=== PATIENT | female | born 1975 | race Two or more races ===

== ENCOUNTER → 2021-05-11 11:35 | Outpatient (BNVA) | payer BC, SELFPAY | PROVIDERS: PCP Internal Medicine; Visit Provider Physician Assistant Surgical ==

== ENCOUNTER → 2021-06-02 08:18 | Outpatient (BNVA) | payer BC, SELFPAY | PROVIDERS: PCP Internal Medicine; Visit Provider Surgery ==

== ENCOUNTER → 2021-10-04 13:37 | Outpatient (REF) | payer BC, SELFPAY | LOC: HO.SL 13:37 | PROVIDERS: Visit Provider Surgery | DX: G47.33 Obstructive sleep apnea (adult) (pediatric) (principal); E66.9 Obesity, unspecified | CPT/HCPCS: 95806 ==

== ENCOUNTER → 2023-06-17 14:10 | Outpatient (BNVA) | payer BC, SELFPAY | PROVIDERS: PCP Nurse Practitioner Family; Visit Provider Physician Assistant ==

== ENCOUNTER 2023-06-26 08:10 | Outpatient (AMB) | payer BC, SELFPAY ==
--- NOTE | 2023-06-26 08:56 | MHC.OFFVISWM ---
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 penicillin V Allergy (Unknown, Verified 06/26/23 09:01) Anaphylaxis Sulfa (Sulfonamide Antibiotics) Allergy (Unknown, Verified 06/26/23 09:01) Anaphylaxis pt states no food allergies Allergy (Unknown, Uncoded 06/26/23 09:01) Anaphylaxis Medication List - Last Reconciled 06/26/23 by Hossein Tucker MD dorzolamide 2% 1 drp ophthalmic (eye) TID gabapentin 100 mg PO BEDTIME naproxen sodium (Aleve) 220 mg PO Q12H PRN simvastatin 5 mg PO DAILY HPI TV Re-Est SWL BMI 40.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* 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 Details Start time: 8.54am, End time: 9.54am ?I spent 50 minutes speaking with the patient on the phone plus an additional 10 minutes reviewing and updating records for a total of 60 minutes HPI Comments History of Present Illness Details [place] [facility] [place], Weight Watchers Wakes up: 7am, Sleeps: 1am Breakfast: 9am (Ham and cheese sandwich) Lunch: skips Dinner: 6pm (pasta, rice, meat) Snacks: 3-4 times between breakfast and dinner (cookies, banana, cake), one time after dinner Exercise: none, has a treadmill Fluids: Coffee (2 cups per day (sugar and almond milk), tea: 1/wk, soda: regular coke daily, juice: occasionally, ETOH: None PFSH Medical History (Updated 06/26/23 @ 09:06 by Hossein Tucker MD) Glaucoma Morbid obesity Steatosis, liver Hypersomnolence Knee pain Hyperlipidemia Hx of appendicitis Surgical History (Updated 06/01/21 @ 15:23 by Yazmin Goodwin CMA) Hx of appendectomy Hx of hysterectomy Family History (Updated 06/01/21 @ 15:20 by Yazmin Goodwin CMA) Mother High cholesterol Arthritis Father No problems noted. Sister No problems noted. Daughter No problems noted. Son No problems noted. Social History (Updated 06/01/21 @ 15:20 by Yazmin Goodwin [facility]) Alcohol intake: current Alcohol intake frequency: holidays/special occasions only Patient Tobacco Use Status: Never used Tobacco Assessment & Plan Assessment & Plan (1) Morbid obesity: Code(s): E66.01 - Morbid (severe) obesity due to excess calories Plan: 1.? Plan for lap sleeve gastrectomy. If diaphragmatic or ventral hernias are present at time of surgery, these will be repaired laparoscopically as well. 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 I emphasized the importance of close follow-up, adherence to instructions and good communication. 2. Nutritional counseling. Start with 2 CELEBRATE REBUILD protein (buy at hospital's [employer] [facility]) shakes (ONE scoop EACH in 8oz low fat unsweetened almond milk each) at 8am-10am and 11am-1pm, 1 protein bar (CELEBRATE protein bars, buy at [facility] [employer] [facility]) at 2pm-4pm, dinner at 5pm (8 forks of protein and 8 forks of salad/vegetables), one more protein bar after dinner at 7pm-9pm and one more CELEBRATE REBUILD protein shake (ONE scoop in 8oz almond milk). So you do 3 protein shakes, 2 protein bars and one meal per day. Meal to include lean meat (beef, fish, pork, turkey, chicken), or south african yogurt, or egg whites, or beans with a salad with olive oil and fruits (berries, pears, apples, kiwi). Avoid salt, breads, potatoes, rice, pasta, desserts. 3. Each shake would be drunk slowly, like coffee in a period of 2 hours. May add your coffee into your shakes, if flavors match. 4. Cut each bar in 4 pieces and eat each piece in 30min ?to make each bar last 2 hours. 5. I emphasized the importance of measuring accurately the food portion and measure it when serving the food in plate 6. The meal portions include 8 full-size forks of meat and 8 full-size forks of salad. You always eat the meat portion but you can replace up to 4 forks for salad/vegetables with rice, potatoes or pasta, or a fruit ?if you like. The less you do it the better weight loss will be. 7. One full-size fork is what it can be scooped on the fork without falling aside and not what can be bit with the fork. Use regular forks like those you find in a typical restaurant. 8.? Please send me weight measurements as soon as possible and then once a week. Always include your diet and exercise plan. 9. Start treadmill with an incline of 2.0 and speed of 3.0. Increase incline by 1 every 3 min to a max incline of 8.0, stay 3min at 8.0 and then return to 2.0 and repeat same steps until calorie goal is met. Goal is to burn 2000 calories per week on exercise, which means either 300 calories daily, or 400 calories 5 days per week, or 500 calories 4 days per week, or 650 calories 3 days per week. Start also weight exercises with 20-30lbs for chest/shoulders/abdomen and 40-50lbs for thighs doing 2 sets of 15 repetitions each. 10. Goal is to lose at least 1.5-2lbs per week 11. Goal to lose 10% of your weight before surgery, which is about 24lbs. Ultimate weight goal: 214lbs before surgery 12. Please follow the diet plan exactly without any change. If you don't like something about the plan or you feel hungry you need to communicate with me so I can help you revise the plan. You should not change the plan yourself. Orders: Orders Insulin Today E66.01 - Morbid (severe) obesity due to excess calories, E78.5 - Hyperlipidemia, unspecified, K76.0 - Fatty (change of) liver, not elsewhere classified Hemoglobin A1c Today E66.01 - Morbid (severe) obesity due to excess calories, E78.5 - Hyperlipidemia, unspecified, K76.0 - Fatty (change of) liver, not elsewhere classified H Pylori Breath Test Today E66.01 - Morbid (severe) obesity due to excess calories, E78.5 - Hyperlipidemia, unspecified, K76.0 - Fatty (change of) liver, not elsewhere classified Lipid Panel Today E66.01 - Morbid (severe) obesity due to excess calories, E78.5 - Hyperlipidemia, unspecified, K76.0 - Fatty (change of) liver, not elsewhere classified IRON PROFILE Today E66.01 - Morbid (severe) obesity due to excess calories, E78.5 - Hyperlipidemia, unspecified, K76.0 - Fatty (change of) liver, not elsewhere classified Zinc Today E66.01 - Morbid (severe) obesity due to excess calories, E78.5 - Hyperlipidemia, unspecified, K76.0 - Fatty (change of) liver, not elsewhere classified Vitamin B1 Today E66.01 - Morbid (severe) obesity due to excess calories, E78.5 - Hyperlipidemia, unspecified, K76.0 - Fatty (change of) liver, not elsewhere classified Vitamin D 25-OH Total Today E66.01 - Morbid (severe) obesity due to excess calories, E78.5 - Hyperlipidemia, unspecified, K76.0 - Fatty (change of) liver, not elsewhere classified ECG 12 lead EKG Today E66.01 - Morbid (severe) obesity due to excess calories, E78.5 - Hyperlipidemia, unspecified, K76.0 - Fatty (change of) liver, not elsewhere classified FL upper GI w air Today E66.01 - Morbid (severe) obesity due to excess calories, E78.5 - Hyperlipidemia, unspecified, K76.0 - Fatty (change of) liver, not elsewhere classified Complete Blood Count Auto Diff Today E66.01 - Morbid (severe) obesity due to excess calories, E78.5 - Hyperlipidemia, unspecified, K76.0 - Fatty (change of) liver, not elsewhere classified Comprehensive Met. Panel Today E66.01 - Morbid (severe) obesity due to excess calories, E78.5 - Hyperlipidemia, unspecified, K76.0 - Fatty (change of) liver, not elsewhere classified Vitamin B12 and Folate Today E66.01 - Morbid (severe) obesity due to excess calories, E78.5 - Hyperlipidemia, unspecified, K76.0 - Fatty (change of) liver, not elsewhere classified C Reactive Protein Today E66.01 - Morbid (severe) obesity due to excess calories, E78.5 - Hyperlipidemia, unspecified, K76.0 - Fatty (change of) liver, not elsewhere classified Vitamin A Today E66.01 - Morbid (severe) obesity due to excess calories, E78.5 - Hyperlipidemia, unspecified, K76.0 - Fatty (change of) liver, not elsewhere classified TSH reflex Free T4 Today E66.01 - Morbid (severe) obesity due to excess calories, E78.5 - Hyperlipidemia, unspecified, K76.0 - Fatty (change of) liver, not elsewhere classified Ferritin Today E66.01 - Morbid (severe) obesity due to excess calories, E78.5 - Hyperlipidemia, unspecified, K76.0 - Fatty (change of) liver, not elsewhere classified US abdomen comp w elastography Today E66.01 - Morbid (severe) obesity due to excess calories, E78.5 - Hyperlipidemia, unspecified, K76.0 - Fatty (change of) liver, not elsewhere classified XR chest 2V Today E66.01 - Morbid (severe) obesity due to excess calories, E78.5 - Hyperlipidemia, unspecified, K76.0 - Fatty (change of) liver, not elsewhere classified Referrals Behavioral Health Referral E66.01 - Morbid (severe) obesity due to excess calories, E78.5 - Hyperlipidemia, unspecified, K76.0 - Fatty (change of) liver, not elsewhere classified Nutrition/Dietitian Referral E66.01 - Morbid (severe) obesity due to excess calories, E78.5 - Hyperlipidemia, unspecified, K76.0 - Fatty (change of) liver, not elsewhere classified Telehealth Telehealth Location of provider rendering services: practice address Location of patient: address on file Patient Identification confirmed using: Name, : Yes Telehealth method: voice only Patient verbally consented to treatment: Yes Patient verbally consented to billing insurance company: Yes Patient informed of any privacy concerns related to visit: Yes Minutes spent on Phone/Video with Pt.: 60 Coding Level of Care Code Tele [facility] Pt Level 5 (87894) Diagnoses Morbid obesity E66.01 Time Spent (min) 60 Comment 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
[2023-06-26 09:18] VITALS: BMI 40.3
== END 2023-06-26 09:54 | disposition home or self-care (01) ==
LOC: HO.HBS 08:10
PROVIDERS: Visit Provider Surgery
DX: E66.01 Morbid (severe) obesity due to excess calories (principal); Z68.41 Body mass index [BMI] 40.0-44.9, adult
CPT/HCPCS: 99443

== ENCOUNTER → 2023-06-26 08:10 | Outpatient (BNVA) | payer BC, SELFPAY | PROVIDERS: Visit Provider Surgery ==

== ENCOUNTER 2023-06-27 10:46 | Outpatient (REF) | payer BC, SELFPAY ==
--- NOTE | ~2023-06-27 | XR_ITS ---
EXAMINATION: XR CHEST 2 VIEWS CLINICAL INFORMATION: Orbit obesity. COMPARISON: None. TECHNIQUE: Frontal and lateral views of the chest were obtained. FINDINGS: The heart, great vessels, pulmonary vasculature and mediastinum are normal. The lungs show no focal infiltrate, effusion or pneumothorax. There is no acute osseous abnormality. XR/XR chest 2V IMPRESSION: No active cardiopulmonary disease.
--- NOTE | 2023-06-27 10:53 | ECG_ITS ---
Test Reason : OBESITY Blood Pressure : / mmHG Vent. Rate : 081 BPM Atrial Rate : 081 BPM P-R Int : 132 ms QRS Dur : 072 ms QT Int : 344 ms P-R-T Axes : 062 020 010 degrees QTc Int : 399 ms Normal sinus rhythm Normal ECG No previous ECGs available Referred By: Hossein Tucker Electronically Signed By:REINALDO REYES
[2023-06-27 11:02] LABS: MANUAL DIFF FLAG NO
[2023-06-27 11:59] LABS: Basophils Percent Auto 0.8 % (0-2); Eosinophils Absolute Auto 0.2 X10*3/uL (0.0-0.4); Eosinophils Percent Auto 4.4 % (0-4); Hematocrit 39.4 % (37.0-47.0); Imm Gran Abs Auto 0.02 X10*3/uL (0.00-0.03); Imm Gran Pct Auto 0.4 % (0.0-0.4); Lymphocytes Absolute Auto 1.3 X10*3/uL (1.2-4.9); Lymphocytes Percent Auto 26.4 % (20-40); Mean Corpuscular Hemoglobin 28.7 pg (27.0-33.0); Mean Platelet Volume 10.2 fL (9.4-12.3); Monocytes Absolute Auto 0.8 X10*3/uL (0.1-1.2); Monocytes Percent Auto 16.1 % (2-11); Neutrophils Absolute Auto 2.6 x10*3/uL (2.0-8.3); Neutrophils Percent Auto 51.9 % (45-73); Platelet Count 188 X10*3/uL (160-400); Red Blood Count 4.53 X10*6/uL (4.20-5.50)
[2023-06-27 12:09] LABS: Estimated Average Glucose 108 mg/dL; Hemoglobin A1c % 5.4 % (<6.0)
[2023-06-27 12:46] LABS: Alanine Aminotransferase 31 U/L (0-31); Albumin Level 4.3 g/dL (3.5-5.0); Alkaline Phosphatase 69 U/L (39-117); Anion Gap 12 (12-20); Aspartate Amino Transferase 19 U/L (5-31); Bilirubin Total 0.3 mg/dL (0.0-1.0); Blood Urea Nitrogen 13 mg/dL (9-16); C Reactive Protein 1.66 mg/dL (< or = 0.50); Calcium 9.5 mg/dL (8.4-10.2); Carbon Dioxide 24 mmol/L (22-29); Chloride 111 mmol/L (96-108); Cholesterol 214 mg/dL (<200); Estimated Glomerular Filt Rate > 60; Glucose Random 97 mg/dL (60-115); HDL Cholesterol 39 mg/dL (>40); Iron 53 mcg/dL (30-160); LDL Cholesterol Calculated 138 mg/dL (<100); Percent Iron Saturation 16 % (15-50); Potassium 4.8 mmol/L (3.3-5.1); Sodium 142 mmol/L (135-145); Total Iron Binding Capacity 322 mcg/dL (228-428); Total Protein 7.6 g/dL (6.5-8.0); Triglycerides 185 mg/dL (<150); Unsaturated Iron Binding 269 ug/dL
[2023-06-27 12:54] LABS: Ferritin 120 ng/mL (10-250); Insulin 33 uU/mL (2-29); TSH reflex Free T4 1.24 uIU/mL (0.32-4.0); Vitamin D 25-OH Total 29.2 ng/mL (>30)
[2023-06-27 12:56] LABS: Folate 6.9 ng/mL (> or = 4.0); Vitamin B12 705 pg/mL (200-900)
[2023-06-30 15:54] LABS: Zinc 74 mcg/dL (60-130)
[2023-07-02 02:49] LABS: Vitamin A 45 mcg/dL (38-98)
[2023-07-05 16:53] LABS: Vitamin B1 9 nmol/L (8-30)
== END 2023-06-27 10:47 | disposition home or self-care (01) ==
LOC: HO.LAB 10:46
PROVIDERS: Visit Provider Surgery
DX: E66.01 Morbid (severe) obesity due to excess calories (principal); E78.5 Hyperlipidemia, unspecified; K76.0 Fatty (change of) liver, not elsewhere classified
CPT/HCPCS: 36415; 71046; 80053; 80061; 82306; 82607; 82728; 82746; 83036; 83525; 83540; 84425; 84443; 84590; 84630; 85025; 86140; 93005

== ENCOUNTER → 2023-06-27 10:53 | Outpatient (BNV) | payer BC, SELFPAY | PROVIDERS: Visit Provider Internal Medicine | DX: E66.01 Morbid (severe) obesity due to excess calories (principal); Z68.41 Body mass index [BMI] 40.0-44.9, adult | CPT/HCPCS: 93010 ==

== ENCOUNTER 2023-07-15 08:13 | Outpatient (AMB) | payer BC, SELFPAY ==
--- NOTE | 2023-07-15 13:33 | MHC.OFFVISWM ---
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* HPI Details Start time: 1.30pm, End time: 1.55pm ?I spent 20 minutes speaking with the patient on the phone plus an additional 5 minutes reviewing and updating records for a total of 25 minutes HPI Comments History of Present Illness Details Overall weight loss: 4lbs or 1.68% TBWL Is doing 1.5 Celebrate Rebuild protein shakes, 1-2 Celebrate bars and one meal (8 forks of protein and 8 forks of salad or vegetables) Exercise: is doing treadmill for 4 days per week for 300 calories PFSH Medical History (Updated 07/15/23 @ 13:53 by Hossein Tucker MD) Glaucoma Morbid obesity Steatosis, liver Hypersomnolence Knee pain Hyperlipidemia Hx of appendicitis Surgical History (Updated 06/01/21 @ 15:23 by Yazmin Goodwin CMA) Hx of appendectomy Hx of hysterectomy Family History (Updated 06/01/21 @ 15:20 by Yazmin Goodwin CMA) Mother High cholesterol Arthritis Father No problems noted. Sister No problems noted. Daughter No problems noted. Son No problems noted. Social History (Updated 06/01/21 @ 15:20 by Yazmin Goodwin CMA) Alcohol intake: current Alcohol intake frequency: holidays/special occasions only Patient Tobacco Use Status: Never used Tobacco Assessment & Plan Assessment & Plan (1) Obesity: Code(s): E66.9 - Obesity, unspecified Qualifiers: Obesity type: due to excess calories Obesity classification: adult class 2 (BMI 35 - 39.9) Serious obesity comorbidity presence: with serious comorbidity Body mass index: BMI 39.0-39.9 Qualified Code(s): E66.01 - Morbid (severe) obesity due to excess calories; Z68.39 - Body mass index [BMI] 39.0-39.9, adult Plan: 1. Please do all shakes and bars of the plan: 2 Celebrate Rebuild protein shakes (1 scoop each in 8oz almond milk), 2 Celebrate bars and one meal (8 forks of protein and 8 forks of salad or vegetables) 2. Measure the food portions correctly and keep them at 8 forks each 3. Exercise: increase treadmill to 5 days per week for 300 calories per work-out. Goal is to burn 2000 calories per week 4. Continue to send me weight measurements weekly on Saturdays Telehealth Telehealth Location of provider rendering services: practice address Location of patient: address on file Patient Identification confirmed using: Name, : Yes Telehealth method: voice only Patient verbally consented to treatment: Yes Patient verbally consented to billing insurance company: Yes Patient informed of any privacy concerns related to visit: Yes Minutes spent on Phone/Video with Pt.: 25 Coding Level of Care Code Tele Est Pt Level 3 (06258) Diagnoses Class 2 severe obesity due to excess calories with serious comorbidity and body mass index (BMI) of 39.0 to 39.9 in adult E66.01; Z68.39 Obesity type: due to excess calories Obesity classification: adult class 2 (BMI 35 - 39.9) Serious obesity comorbidity presence: with serious comorbidity Body mass index: BMI 39.0-39.9 Time Spent (min) 25 Comment With a Setswana speaking case management social worker
[2023-07-15 13:34] VITALS: BMI 39.6
== END 2023-07-15 13:56 | disposition home or self-care (01) ==
LOC: HO.HBS 08:14
PROVIDERS: Visit Provider Surgery
DX: E66.09 Other obesity due to excess calories (principal); Z68.39 Body mass index [BMI] 39.0-39.9, adult
CPT/HCPCS: 99213; 99443

== ENCOUNTER → 2023-07-15 08:13 | Outpatient (BNVA) | payer BC, SELFPAY | PROVIDERS: Visit Provider Surgery ==

== ENCOUNTER 2023-07-19 13:52 | Outpatient (AMB) | payer BC, SELFPAY ==
--- NOTE | 2023-07-19 13:24 | MHC.AMNUTRGE ---
Intake Intake Visit Reasons: TV Initial Nutrition [facility] Seismograph Helper Required: Yes Seismograph Helper Name: [id number] Information Interpreted: non-clinical & clinical Allergies penicillin V Allergy (Unknown, Verified 06/26/23 09:01) Anaphylaxis Sulfa (Sulfonamide Antibiotics) Allergy (Unknown, Verified 06/26/23 09:01) Anaphylaxis pt states no food allergies Allergy (Unknown, Uncoded 06/26/23 09:01) Anaphylaxis HPI Nutrition Presentation Reason for consult elevated BMI Diet Assmnt Details pt reports she has been following Dr. Tucker nutrition plan, has no questions or concerns today. She is very happy with the shakes and bars. for dinnr meals she has vegetable and steak, chicken, or shrimp. [facility] online classes : completed. Some of them she did not score well on but she thinks her quiz malfunctioned and she demonstrates an understanding of the information today. Dietary counseling reduction Meal frequency regular: breakfast, dinner (rice, beans, meat ) and snacks (candy) and never: lunch Lifestyle Eating out 1-3 times/week Food frequency Dairy: several times weekly, Fruit: several times weekly, Vegetables: several times weekly, Grains/pasta/breads/cereal (carbs): daily, Meats/poultry/fish (protein): daily (dislikes fish ) and Meat substitutes/nuts/seeds/legumes: daily Diagnosis Nutrition problem #1 overweight/obesity As related to (etiology) #1 excess energy intake and physical inactivity As evidenced by (sign/symptom) #1 high BMI Monitoring/Goals Nutrition problem monitoring total energy intake, level of knowledge/skill, total PRO intake, weight and oral fluids Outcome progress progressing Learning/Education Readiness to learn good Stages of change action Most Recent Diabetes Results: Cholesterol 214 mg/dL (<200) H 06/27/23 HDL Cholesterol 39 mg/dL (>40) L 06/27/23 Triglycerides 185 mg/dL (<150) H 06/27/23 Creatinine 0.86 mg/dL (0.5-1.4) 06/27/23 Blood Urea Nitrogen 13 mg/dL (9-16) 06/27/23 Sodium 142 mmol/L (135-145) 06/27/23 Potassium 4.8 mmol/L (3.3-5.1) 06/27/23 Chloride 111 mmol/L (96-108) H 06/27/23 Carbon Dioxide 24 mmol/L (22-29) 06/27/23 Calcium 9.5 mg/dL (8.4-10.2) 06/27/23 AST 19 U/L (5-31) 06/27/23 ALT 31 U/L (0-31) 06/27/23 Total Protein 7.6 g/dL (6.5-8.0) 06/27/23 Albumin 4.3 g/dL (3.5-5.0) 06/27/23 [facility] Medical History (Updated 07/15/23 @ 13:53 by Hossein Tcuker MD) Glaucoma Morbid obesity Steatosis, liver Hypersomnolence Knee pain Hyperlipidemia Hx of appendicitis Surgical History (Updated 06/01/21 @ 15:23 by Yazmin Goodwin CMA) Hx of appendectomy Hx of hysterectomy Family History (Updated 06/01/21 @ 15:20 by Yazmin Goodwin CMA) Mother High cholesterol Arthritis Father No problems noted. Sister No problems noted. Daughter No problems noted. Son No problems noted. Social History (Updated 06/01/21 @ 15:20 by Yazmin Goodwin CMA) Alcohol intake: current Alcohol intake frequency: holidays/special occasions only Patient Tobacco Use Status: Never used Tobacco Assessment & Plan Assessment & Plan (1) Obesity (BMI 30-39.9): Code(s): E66.9 - Obesity, unspecified Plan pt is cleared from a nutrition standpoint for bariatric surgery., reviewed classes and pt demonstrates understanding Telehealth Telehealth Location of provider rendering services: other Location of patient: address on file Patient Identification confirmed using: Name, : Yes Telehealth method: voice only Patient verbally consented to treatment: Yes Patient verbally consented to billing insurance company: Yes Patient informed of any privacy concerns related to visit: Yes Minutes spent on Phone/Video with Pt.: 30 Coding Level of Care Code Nutr Indiv Intake (70491) Diagnoses Obesity (BMI 30-39.9) E66.9 Time Spent (min) 30
== END 2023-07-19 13:56 | disposition home or self-care (01) ==
LOC: HO.HBS 13:52
PROVIDERS: Visit Provider Dietitian, Registered
DX: E66.9 Obesity, unspecified (principal)

== ENCOUNTER → 2023-07-19 13:52 | Outpatient (BNVA) | payer BC, SELFPAY | PROVIDERS: Visit Provider Dietitian, Registered | DX: E66.9 Obesity, unspecified (principal); Z71.3 Dietary counseling and surveillance | CPT/HCPCS: 97802 ==

== ENCOUNTER 2023-07-30 08:17 | Outpatient (REF) | payer BC, SELFPAY | END 2023-07-30 08:18 | disposition home or self-care (01) | LOC: HO.US 08:17 | PROVIDERS: Visit Provider Surgery | DX: Z11.2 Encounter for screening for other bacterial diseases (principal); E66.01 Morbid (severe) obesity due to excess calories | CPT/HCPCS: 99211 ==

== ENCOUNTER 2023-07-30 13:51 | Outpatient (REF) | payer BC, SELFPAY ==
[2023-08-04 14:28] LABS: H Pylori Breath Test Negative (Negative)
== END 2023-07-30 13:52 | disposition home or self-care (01) ==
LOC: HO.LNP 13:51
PROVIDERS: Visit Provider Surgery
DX: E66.01 Morbid (severe) obesity due to excess calories (principal); K76.0 Fatty (change of) liver, not elsewhere classified; E78.5 Hyperlipidemia, unspecified
CPT/HCPCS: 83013

== ENCOUNTER 2023-07-31 10:05 | Outpatient (AMB) | payer BC, SELFPAY ==
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
== END 2023-08-07 14:55 | disposition home or self-care (01) ==
LOC: HO.HBST 10:05
PROVIDERS: Visit Provider Counselor Mental Health
DX: F43.20 Adjustment disorder, unspecified (principal)
CPT/HCPCS: 90791

== ENCOUNTER → 2023-07-31 10:05 | Outpatient (BNVA) | payer BC, SELFPAY | PROVIDERS: Visit Provider Counselor Mental Health ==

== ENCOUNTER 2023-08-05 08:00 | Outpatient (AMB) | payer BC, SELFPAY ==
--- NOTE | 2023-08-05 10:40 | MHC.OFFVISWM ---
Intake VS Expanded 08/05/23 10:48 Height 5 ft 4.5 in Weight 235 lb 8 oz BMI 39.8 Body Fat % 51.2 Body Fat Mass 120.7 Fat Free Mass 115.1 Visceral Fat Rating 15.7 Body Water % 38.1 Body Water Mass 89.8 Basal Metabolic Rate/Score 1,718 Intake Visit Reasons: TV Follow Up SWL *[facility]ER [facility]TER* Allergies penicillin V Allergy (Unknown, Verified 07/30/23 08:37) Anaphylaxis Sulfa (Sulfonamide Antibiotics) Allergy (Unknown, Verified 07/30/23 08:37) Anaphylaxis pt states no food allergies Allergy (Unknown, Uncoded 06/26/23 09:01) Anaphylaxis HPI TV Follow Up SWL *SANDER [employer]TER* HPI Details Start time: 10.37am, End time: 10.57am ?I spent 15 minutes speaking with the patient on the phone plus an additional 5 minutes reviewing and updating records for a total of 20 minutes HPI Comments History of Present Illness Details Overall weight loss: 2.8lbs, or 1.17% TBWL Is doing 2 Celebrate Rebuild protein shakes (1 scoop each in 8oz almond milk), 2 Celebrate protein bars and one meal (8 forks of protein and 8 forks of salad or vegetables) Exercise: is doing treadmill daily for 300 calories per work-out [facility] Medical History (Updated 07/15/23 @ 13:53 by Hossein Tucker MD) Glaucoma Morbid obesity Steatosis, liver Hypersomnolence Knee pain Hyperlipidemia Hx of appendicitis Surgical History (Updated 06/01/21 @ 15:23 by Yazmin Goodwin CMA) Hx of appendectomy Hx of hysterectomy Family History (Updated 06/01/21 @ 15:20 by Yazmin Goodwin CMA) Mother High cholesterol Arthritis Father No problems noted. Sister No problems noted. Daughter No problems noted. Son No problems noted. Social History (Updated 06/01/21 @ 15:20 by Yazmin Goodwin CMA) Alcohol intake: current Alcohol intake frequency: holidays/special occasions only Patient Tobacco Use Status: Never used Tobacco Physical Exam Vital Signs: BMI result Body Mass Index 39.8 Assessment & Plan Assessment & Plan (1) Obesity: Code(s): E66.9 - Obesity, unspecified Qualifiers: Body mass index: BMI 39.0-39.9 Obesity classification: adult class 2 (BMI 35 - 39.9) Obesity type: due to excess calories Serious obesity comorbidity presence: with serious comorbidity Qualified Code(s): E66.01 - Morbid (severe) obesity due to excess calories; Z68.39 - Body mass index [BMI] 39.0-39.9, adult Plan: 1. Continue same nutritional plan of 2 Celebrate Rebuild protein shakes (1 scoop each in 8oz almond milk), 2 Celebrate protein bars and one meal (8 forks of protein and 8 forks of salad or vegetables) 2. Exercise: continue treadmill daily for 300 calories per work-out. Goal is to burn 2000 calories per week on treadmill 4. Continue to send me weight measurements weekly on Saturdays Telehealth Telehealth Location of provider rendering services: practice address Location of patient: address on file Patient Identification confirmed using: Name, : Yes Telehealth method: voice only Patient verbally consented to treatment: Yes Patient verbally consented to billing insurance company: Yes Patient informed of any privacy concerns related to visit: Yes Minutes spent on Phone/Video with Pt.: 20 Coding Level of Care Code Tele Est Pt Level 3 (36451) Diagnoses Class 2 severe obesity due to excess calories with serious comorbidity and body mass index (BMI) of 39.0 to 39.9 in adult E66.01; Z68.39 Body mass index: BMI 39.0-39.9 Obesity classification: adult class 2 (BMI 35 - 39.9) Obesity type: due to excess calories Serious obesity comorbidity presence: with serious comorbidity Time Spent (min) 20 Comment With a Citizen Of [place] speaking supervisor assembly
[2023-08-05 10:48] VITALS: BMI 39.8
== END 2023-08-05 10:59 | disposition home or self-care (01) ==
LOC: HO.HBS 08:00
PROVIDERS: Visit Provider Surgery
DX: E66.01 Morbid (severe) obesity due to excess calories (principal); Z68.39 Body mass index [BMI] 39.0-39.9, adult
CPT/HCPCS: 99213; 99442

== ENCOUNTER → 2023-08-05 08:00 | Outpatient (BNVA) | payer BC, SELFPAY | PROVIDERS: Visit Provider Surgery ==

== ENCOUNTER 2023-08-12 10:02 | Outpatient (REF) | payer BC, SELFPAY ==
--- NOTE | ~2023-08-12 | US_ITS ---
EXAMINATION: US COMPLETE ABDOMEN WITH LIVER ELASTOGRAPHY CLINICAL INFORMATION: Morbid (severe) obesity COMPARISON: None available. TECHNIQUE: Real-time imaging of the abdominal viscera. Noninvasive ultrasound liver fibrosis assessment is performed using Sherry ElastPQ point quantification shear wave elastography (2D-SWE) with a C5-2 MHz transducer. Multiple elastography samples are obtained. FINDINGS: PANCREAS: The visualized pancreatic head and body are normal in appearance. The remainder of the pancreas is obscured from visualization by the overlying bowel gas. ABDOMINAL AORTA: The proximal, middle, and distal aortic segments are normal in caliber. INFERIOR VENA CAVA: Visualized portions are normal. LIVER: The liver demonstrates normal size and contour with mildly increased echogenicity. No focal lesion or intrahepatic biliary duct dilatation. The right lobe measures 15 cm in length. The left lobe measures 10.4 cm in length. Portal flow is towards the liver (hepatopetal). Shear wave liver elastography median stiffness is 1.5 m/s (reference: normal median stiffness is 1.3 m/s or less). IQR/median stiffness to assess sampling precision is 0.04 (reference: good quality data set is IQR/median stiffness of 0.15 or less). GALLBLADDER: The gallbladder is physiologically distended without evidence of stones, sludge, polyps, wall thickening or pericholecystic fluid. COMMON BILE DUCT: Normal in caliber measuring 0.3 cm in diameter. RIGHT KIDNEY: No hydronephrosis. No renal calculi or focal parenchymal lesions. The kidney measures 11.5 cm in maximum dimension. LEFT KIDNEY: No hydronephrosis. No renal calculi or focal parenchymal lesions. The kidney measures 10.7 cm in maximum dimension. SPLEEN: The spleen measures 10 cm in maximum dimension. FREE FLUID: None. US/US abdomen comp w elastography IMPRESSION: 1. Diffuse mildly increased liver echogenicity suggestive of infiltrative hepatocellular disease such as steatosis. 2. Liver elastography: In the absence of other known clinical signs, measurements rule out compensated advanced chronic liver disease. If there are known clinical signs, further testing may be needed for confirmation. REFERENCE: Society of Radiologists in Ultrasound Liver Stiffness Thresholds (2020): LIVER STIFFNESS THRESHOLDS: *Liver Stiffness equal or less than 1.3 m/s: High probability of being normal. *Liver Stiffness less than 1.7 m/s: In the absence of other known clinical signs, rules out compensated advanced chronic liver disease. *Liver Stiffness 1.7-2.1 m/s: Suggestive of compensated advanced chronic liver disease but need further test for confirmation. *Liver Stiffness over 2.1 m/s: Rules in compensated advanced chronic liver disease. *Liver Stiffness over 2.4 m/s: Suggestive of clinically significant portal hypertension. QUALITY OF DATA SET: *IQR/Median value equal or less than 0.15 implies a quality data set. *IQR/Median value over 0.15 implies a poor quality data set. SIGNIFICANT CHANGE FROM PRIOR EXAM: Significant change if liver stiffness measurement is 10% or greater from prior exam. OTHER CONSIDERATIONS: The stage of liver fibrosis may be overestimated in the setting of acute hepatitis, liver inflammation, elevated liver function tests, hepatic vascular congestion, obstructive cholestasis, non-fasting state, and infiltrative diseases such as amyloidosis and lymphoma. In some patients with NAFLD, the liver stiffness thresholds for compensated advanced chronic liver disease may be lower. In causes other than viral hepatitis and NAFLD, liver stiffness thresholds are not well established.
== END 2023-08-12 10:03 | disposition home or self-care (01) ==
LOC: HO.US 10:02
PROVIDERS: Visit Provider Surgery
DX: E66.01 Morbid (severe) obesity due to excess calories (principal); K76.0 Fatty (change of) liver, not elsewhere classified; E78.5 Hyperlipidemia, unspecified
CPT/HCPCS: 76700; 76981

== ENCOUNTER 2023-08-28 10:00 | Outpatient (AMB) | payer BC, SELFPAY ==
--- NOTE | 2023-08-28 10:13 | MHC.WMTHER ---
Intake Intake Visit Reasons: VIDEO BH F/U Allergies penicillin V Allergy (Unknown, Verified 07/30/23 08:37) Anaphylaxis Sulfa (Sulfonamide Antibiotics) Allergy (Unknown, Verified 07/30/23 08:37) Anaphylaxis pt states no food allergies Allergy (Unknown, Uncoded 06/26/23 09:01) Anaphylaxis [facility] Medical History (Updated 07/15/23 @ 13:53 by Hossein Tucker MD) Glaucoma Morbid obesity Steatosis, liver Hypersomnolence Knee pain Hyperlipidemia Hx of appendicitis Surgical History (Updated 06/01/21 @ 15:23 by Yazmin Goodwin CMA) Hx of appendectomy Hx of hysterectomy Family History (Updated 06/01/21 @ 15:20 by Yazmin Goodwin CMA) Mother High cholesterol Arthritis Father No problems noted. Sister No problems noted. Daughter No problems noted. Son No problems noted. Social History (Updated 06/01/21 @ 15:20 by Yazmin Goodwin CMA) Alcohol intake: current Alcohol intake frequency: holidays/special occasions only Patient Tobacco Use Status: Never used Tobacco Behavioral Health Assessment Weight Management Therapy Therapy Notes Details PT presents for a follow up. 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 PT reports she has been doing great with the meal plan, but is having a hard time to start exercising but she does uses her treadmill daily. We administered again the BEs and scores decreased from 27 when started program to 3 today. Reflecting positive behavioral changes in eating habits and mindset. Mental status exam is within normal limits showing patient's functioning is excellent. PT is cleared and she is considered a great candidate for the SWL program. Presenting Concerns Referral Source PT sees Dr. Aviles. She was referred to the program by a friend who has bariatric surgery. Reason for referral Completion of behavioral health assessment as part of process for weight-loss surgery. Precipitating Event Obesity. She has tried multiple methods with no result. Binge Eating Do you frequently eat large amounts of food in short periods of time, not feeling physically hungry? No Do you feel out of control when you eat a large amount of food in a short period of time? No Do you eat large amounts of food rapidly and typically alone? No Night Eating Do you wake up at least once during the night to eat? No If you wake up in the night, do you find that it is necessary to eat something in order to fall back asleep? No Do you have little or no appetite in the morning and feel very hungry in the evening, often overeating between dinner and when you go to bed? No Questionnaires Binge Eating Scale Group 1 A. I don't feel self-conscious about my wt. or body size when I'm with others. B. I feel concerned about how I look to others, but it normally does not make me fell disappointed with myself C. I do get self-conscious about my appearance and wt. which makes me feel disappointed in myself. D. I feel very self-conscious about my wt. and frequently I feel intense shame and disgust for myself. I try to avoid social contacts because of my self-consciousness. Response Group 1: B Group 2 A. I don't have any difficulty eating slowly in the proper manner. B. Although I seem to gobble down foods, I don't end up feeling stuffed because of eating to much. C. At times, I tend to eat quickly and then, I feel uncomfortably full afterwards. D. I have the habit of bolting down my food, without really chewing it. When this happens I usually feel uncomfortably stuffed because I've eaten to much. Response Group 2: A Group 3 A. I feel capable to control my eating urges when I want to. B. I feel like I have failed to control my eating more than the average person. C. I feel utterly helpless when it comes to feeling in control of my eating urges. D. Because I feel so helpless about controlling my eating I have become very desperate about trying to get control. Response Group 3: A Group 4 A. I don't have the habit of eating when I'm bored. B. I sometimes eat when I'm bored, but often I'm able to get busy and get my mind off food. C. I have a regular habit of eating when I'm bored, but occasionally, I can use some other activity to get my mind off eating. D. I have a strong habit of eating when I'm bored. Nothing seems to help me breath the habit. Response Group 4: A Group 5 A. I'm usually physically hungry when I eat something. B. Occasionally, I eat something on impulse even though I really am not hungry. C. I have the regular habit of eating foods, that I might not really enjoy, to satisfy a hungry feeling even though physically, I don't need the food. D. Although I'm not physically hungry, I get a hungry feeling in my mouth that only seems to be satisfied when I eat a food, like sandwich, that fills my mouth. Sometimes, when I eat the food to satisfy my mouth hunger, I then spit the food out so I won't gain weight. Response Group 5: A Group 6 A. I don't feel any guilt or self-hate after I overeat. B. After I overeat, occasionally I feel guilt or self-hate. C. Almost all the time I experience strong guilt or self-hate after I overeat. Response Group 6: A Group 7 A. I don't lose total control of my eating when dieting even after periods when I overeat. B. Sometimes when I eat a forbidden food on a diet, I feel like I blew it and eat even more. C. Frequently, I have the habit of saying to myself, I've blown it now, why not go all the way, when I overeat on a diet. When that happens I eat more. D. I have a regular habit of starting a strict diets for myself but I break the diets by going on an eating binge. My life seems to be either a feast or famine. Response Group 7: A Group 8 A. I rarely eat so much food that I feel uncomfortably stuffed afterwards. B. Usually about once a month, I each such a quantity of food, I end up feeling very stuffed. C. I have regular periods during the month when I eat large amounts of food, either at mealtime or at snacks. D. I eat so much food that I regularly feel quite uncomfortable after eating and sometimes a bit nauseous. Response Group 8: A Group 9 A. My level of calorie intake does not go up very high or go down very low on a regular basis. B. Sometimes after I overeat, I will try to reduce my caloric intake to almost nothing to compensate for the excess calories I've eaten. C. I have a regular habit of overeating during the night. It seems that my routine is not to be hungry in the morning but overeat in the evening. D. In my adult years, I have had week-long periods where I practically starve myself. This follows periods when I overeat. It seems I live a life of either feast or famine. Response Group 9: A Group 10 A. I usually am able to stop eating when I want to. I know when enough is enough. B. Every so often, I experience a compulsion to eat which I can't seem to control. C. Frequently, I experience strong urges to eat which I seem unable to control, but at other times I can control my eating urges. D. I feel incapable of controlling urges to eat. I have a fear of not being able to stop eating voluntarily. Response Group 10: A Group 11 A. I don't have any problem stopping eating when I feel full. B. I usually can stop eating when I feel full but occasionally overeat leaving me feeling uncomfortably stuffed. C. I have a problem stopping eating once I start and usually I feel uncomfortably stuffed after I eat a meal. D. Because I have a problem not being able to stop eating when I want, I sometimes have to induce vomiting to relieve my stuffed feeling. Response Group 11: A Group 12 A. I seem to eat just as much when I'm with others, Family social gatherings as when I'm by myself. B. Sometimes, when I'm with other persons, I don't eat as much as I want to eat because I'm self-conscious about my eating. C. Frequently, I eat only a small amount of food when others are present, because I'm very embarrassed about my eating. D. I feel so ashamed about overeating that I pick times to overeat when I know no one will see me. I feel like a closet eater. Response Group 12: A Group 13 A. I eat three meals a day with only an occasional between meal snack. B. I eat 3 meals a day, but I also normally snack between meals. C. When I am snacking heavily, I get in the habit of skipping regular meals. D. There are regular periods when I seem to be continually eating, with no planned meals. Response Group 13: A (Following meal plan. 2 shakes, 2 bars and 1 meal. ) Group 14 A. I don't think much about trying to control unwanted eating urges. B. At least some of the time, I feel my thoughts are pre-occupied with trying to control my eating urges. C. I feel that frequently I spend much time thinking about how much I ate or about trying not to eat anymore. D. It seems to me that most of my waking hours are pre-occupied by thoughts about eating or not eating. I feel like I'm constantly struggling not to eat. Response Group 14: B Group 15 A. I don't think about food a great deal. B. I have strong craving for food but they last only for brief periods of time. C. I have days when I can't seem to think about anything else but food. D. Most of my days seem to be pre-occupied with thoughts about food. I feel like I live to eat. Response Group 15: B Group 16 A. I usually know whether or not I'm physically hungry. I take the right portion of food to satisfy me. B. Occasionally, I feel uncertain about knowing whether or not I'm physically hungry. A these times it's hard to know how much food I should take to satisfy me. C. Even though I might know how many calories I should eat, I don't have any idea what is a normal amount of food for me. Response Group 16: A Binge Eating Score: 3 Score less than 17 Minimal Risk Score between 18-26 Moderate Risk Score between 27-46 High Risk Assessment & Plan Assessment & Plan (1) Adjustment disorder in remission: Code(s): F43.20 - Adjustment disorder, unspecified Plan PT has been cleared from standpoint, she doesn't need follow up with anymore before surgery. She has been provided with information about support gorups, therapy groups, Dr Stefan wallace for post-op and our facebook page. Patient will be seen 4-8 weeks post op for support. Telehealth Telehealth Location of provider rendering services: other (Home office. [place], [place].) Location of patient: address on file Patient Identification confirmed using: Name, : Yes Telehealth method: voice only Patient verbally consented to treatment: Yes Patient verbally consented to billing insurance company: Yes Patient informed of any privacy concerns related to visit: Yes Minutes spent on Phone/Video with Pt.: 60 Coding Level of Care Code Established Pt Tele Psytx >53 mins ([id number]) Patient Type Established Diagnoses Adjustment disorder in remission F43.20 Time Spent (min) 60
== END 2023-08-28 10:45 | disposition home or self-care (01) ==
LOC: HO.HBST 10:17
PROVIDERS: Visit Provider Counselor Mental Health
DX: F43.20 Adjustment disorder, unspecified (principal)
CPT/HCPCS: 90837

== ENCOUNTER → 2023-08-28 10:00 | Outpatient (BNVA) | payer BC, SELFPAY | PROVIDERS: Visit Provider Counselor Mental Health ==

== ENCOUNTER 2023-09-09 08:13 | Outpatient (AMB) | payer BC, SELFPAY ==
--- NOTE | 2023-09-09 10:30 | MHC.OFFVISWM ---
VS Expanded 09/09/23 10:34 Height 5 ft 4.5 in Weight 223 lb 6 oz BMI 37.7 Body Fat % 48.4 Body Fat Mass 108.2 Fat Free Mass 115.4 Visceral Fat Rating 19 Body Water % 35.4 Body Water Mass 79.1 Basal Metabolic Rate/Score 1,500 Intake Visit Reasons: TV Follow Up SWL *[employer]* Allergies penicillin V Allergy (Unknown, Verified 07/30/23 08:37) Anaphylaxis Sulfa (Sulfonamide Antibiotics) Allergy (Unknown, Verified 07/30/23 08:37) Anaphylaxis pt states no food allergies Allergy (Unknown, Uncoded 06/26/23 09:01) Anaphylaxis HPI HPI TV Follow Up SWL *[employer]EL[employer]*: Details: Start time: 10.21am, End time: 10.41am ?I spent 15 minutes speaking with the patient on the phone plus an additional 5 minutes reviewing and updating records for a total of 20 minutes HPI Comments Details: Overall weight loss: 2.8lbs, or 1.17% TBWL Is doing 2 Celebrate Rebuild protein shakes (1 scoop each in 8oz almond milk), 2 Celebrate protein bars and one meal (8 forks of protein and 8 forks of salad or vegetables) Exercise: is doing treadmill daily for 300 calories per work-out (speed 3.8mph and incline up to 5) PFS Medical History (Updated 07/15/23 @ 13:53 by Hossein Tucker MD) Glaucoma Morbid obesity Steatosis, liver Hypersomnolence Knee pain Hyperlipidemia Hx of appendicitis Surgical History (Updated 06/01/21 @ 15:23 by Yazmin Goodwin CMA) Hx of appendectomy Hx of hysterectomy Family History (Updated 06/01/21 @ 15:20 by Yazmin Goodwin CMA) Mother High cholesterol Arthritis Father No problems noted. Sister No problems noted. Daughter No problems noted. Son No problems noted. Social History (Updated 06/01/21 @ 15:20 by Yazmin Goodwin CMA) Alcohol intake: current Alcohol intake frequency: holidays/special occasions only Patient Tobacco Use Status: Never used Tobacco Telehealth Telehealth Telehealth Platform: Telephone Location of provider rendering services: practice address Location of patient: address on file Patient Identification confirmed using: Name, : Yes Telehealth method: voice only Patient verbally consented to treatment: Yes Patient verbally consented to billing insurance company: Yes Patient informed of any privacy concerns related to visit: Yes Minutes spent on Phone/Video with Pt.: 20 Assessment & Plan Assessment & Plan (1) Obesity: Code(s): E66.9 - Obesity, unspecified Category: Medical Qualifiers: Obesity type: due to excess calories Obesity classification: adult class 2 (BMI 35 - 39.9) Serious obesity comorbidity presence: with serious comorbidity Body mass index: BMI 39.0-39.9 Qualified Code(s): E66.01 - Morbid (severe) obesity due to excess calories; Z68.39 - Body mass index [BMI] 39.0-39.9, adult Plan: 1. Continue same nutritional plan of 2 Celebrate Rebuild protein shakes (1 scoop each in 8oz almond milk), 2 Celebrate protein bars and one meal (8 forks of protein and 8 forks of salad or vegetables) 2. Exercise: continue treadmill daily for 300 calories per work-out (speed 3.8mph and incline up to 5). Try to increase the calorie burn to 350-400 calories per day 3. Continue to send me weight measurements weekly on
[2023-09-09 10:34] VITALS: BMI 37.7
== END 2023-09-09 10:42 | disposition home or self-care (01) ==
LOC: HO.HBS 08:13
PROVIDERS: Visit Provider Surgery
DX: E66.01 Morbid (severe) obesity due to excess calories (principal); Z68.37 Body mass index [BMI] 37.0-37.9, adult
CPT/HCPCS: 99213; 99442

== ENCOUNTER → 2023-09-09 08:13 | Outpatient (BNVA) | payer BC, SELFPAY | PROVIDERS: Visit Provider Surgery | DX: E66.01 Morbid (severe) obesity due to excess calories (principal); Z68.39 Body mass index [BMI] 39.0-39.9, adult ==